=== PATIENT | female | born 1940 | race Caucasian/White ===

== ENCOUNTER 2023-02-11 06:01 | Day surgery (SDC) | payer MEDICARE, BC ==
[2023-02-10 10:57] VITALS: BMI 29.2
[~2023-02-11 06:01] MED LIST: EPINEPHrine 0.3 MG in Ophthalmic Irrigation Solution 500 ML IRR SCH
[2023-02-11] MEDS ORDERED: Phenylephrine 2.5% Ophth Soln 5 ML BOT ONE (06:19)
[2023-02-11] MEDS ORDERED: Cyclopentolate 1% Opth Drop 2 ML BOT ONE (06:19)
[2023-02-11] MEDS ORDERED: Midazolam HCl 2 mg/2 ml Vial ONE (06:39)
[2023-02-11] MEDS ORDERED: fentaNYL 50 mcg/mL 1 mL Vial ONE (06:39)
[2023-02-11] MEDS ORDERED: PROPOFOL 20 ML ONE (06:39)
[2023-02-11] MEDS ORDERED: Bupivacaine 0.75% 10 ML VIAL ONE (07:20)
[2023-02-11] MEDS ORDERED: Lidocaine 1% PF 5 ML VIAL ONE (07:20)
[2023-02-11] MEDS ORDERED: Lidocaine 4% PF 5 ML AMP ONE (07:20)
[2023-02-11] MEDS ORDERED: CEFAZOLIN 1 GM VIAL ONE (07:20)
[2023-02-11] MEDS ORDERED: Triamcinolone 40 MG/ML VIAL ONE (07:20)
[2023-02-11] MEDS ORDERED: Maxitrol 0.1% Opth Oint 3.5 GM TUBE ONE (07:20)
== END 2023-02-11 08:28 | disposition home or self-care (01) ==
LOC: SDC 06:01
PROVIDERS: ATTEND Ophthalmology Retina Specialist
PROC: 08T53ZZ Resection of Left Vitreous, Percutaneous Approach (ICD-10-PCS; principal; 2023-02-11)
DX: H43.392 Other vitreous opacities, left eye (principal); I10 Essential (primary) hypertension; E03.9 Hypothyroidism, unspecified; K21.9 Gastro-esophageal reflux disease without esophagitis; M19.90 Unspecified osteoarthritis, unspecified site; Z79.84 Long term (current) use of oral hypoglycemic drugs; Z79.890 Hormone replacement therapy; Z79.899 Other long term (current) drug therapy; Z98.41 Cataract extraction status, right eye; Z98.42 Cataract extraction status, left eye; Z96.1 Presence of intraocular lens
CPT/HCPCS: J0171; J0690; J2250; J2704; J3010; J3301; J3490

== ENCOUNTER 2023-05-13 05:58 | Day surgery (SDC) | payer MEDICARE, BC ==
[2023-05-09 12:41] VITALS: BMI 29.2
[2023-05-13] MEDS ORDERED: EPINEPHrine 0.3 MG in Ophthalmic Irrigation Solution 500 ML IRR SCH (06:00)
[2023-05-13] MEDS ORDERED: PHENYLephrine 2.5% Ophth Soln 15 ml Bottle ONE (06:02)
[2023-05-13] MEDS ORDERED: Cyclopentolate 1% Opth Drop 2 ML BOT ONE (06:03)
[2023-05-13] MEDS ORDERED: fentaNYL 50 mcg/mL 1 mL Vial ONE (06:46)
[2023-05-13] MEDS ORDERED: Midazolam HCl 2 mg/2 ml Vial ONE (06:46)
[2023-05-13] MEDS ORDERED: Dexmedetomidine 200 MCG/2 ML VIAL ONE (06:47)
[2023-05-13] MEDS ORDERED: Maxitrol 0.1% Opth Oint 3.5 GM TUBE ONE (07:27)
[2023-05-13] MEDS ORDERED: PROPOFOL 200 MG/20 ML VIAL ONE (07:27)
[2023-05-13] MEDS ORDERED: CEFAZOLIN 1 GM VIAL ONE (07:27)
[2023-05-13] MEDS ORDERED: Lidocaine 1% PF 5 ML VIAL ONE (07:27)
[2023-05-13] MEDS ORDERED: Bupivacaine 0.75% 10 ML VIAL ONE (07:27)
[2023-05-13] MEDS ORDERED: Triamcinolone 40 MG/ML VIAL ONE (07:27)
[2023-05-13] MEDS ORDERED: Lidocaine 4% PF 5 ML AMP ONE (07:27)
== END 2023-05-13 08:50 | disposition home or self-care (01) ==
LOC: SDC 05:58
PROVIDERS: ATTEND Ophthalmology Retina Specialist
PROC: 08T43ZZ Resection of Right Vitreous, Percutaneous Approach (ICD-10-PCS; principal; 2023-05-13)
DX: H43.391 Other vitreous opacities, right eye (principal)
CPT/HCPCS: 67036; J3010; J0171; J0690; J2250; J2704; J3301; J3490

== ENCOUNTER 2024-05-19 10:55 | Outpatient (CLI) | payer MEDICARE, BC | END 2024-05-19 10:56 | disposition home or self-care (01) | LOC: BICMAMMO 10:55 | PROVIDERS: ATTEND Family Medicine | DX: Z12.31 Encounter for screening mammogram for malignant neoplasm of breast (principal); Z80.3 Family history of malignant neoplasm of breast; Z98.890 Other specified postprocedural states | CPT/HCPCS: 77063; 77067 ==

== ENCOUNTER 2025-06-10 12:40 | Outpatient (CLI) | payer MEDICARE, BC | END 2025-06-10 12:41 | disposition home or self-care (01) | LOC: BICMAMMO 12:40 | PROVIDERS: ATTEND Physician Assistant | DX: Z12.31 Encounter for screening mammogram for malignant neoplasm of breast (principal); Z80.3 Family history of malignant neoplasm of breast; Z98.890 Other specified postprocedural states | CPT/HCPCS: 77063; 77067 ==